=== PATIENT | male | born 1980 | race Caucasian/White ===

== ENCOUNTER 2018-07-18 12:38 | Inpatient (IN) | payer MEDICAID ==
[~2018-07-18] VITALS: Ht 162.6 cm; Wt 136.1 kg
[~2018-07-18 12:38] MED LIST: DUONEB 2.5-0.5 M3 ML INH; HYDROCODONE-APA1 TA1 PO; LEVAQUIN 500 M500 M2 PO; LEVOFLOXACIN750 MG PO; MUCINEX TA600 MG/TA2 PO; MUCINEX600 MG PO; NOHOMEMEDICATIONS; PREDNISONE 10 M10 MG PO; PREDNISONE 20 M20 MG PO; PREDNISONE50 MG PO; PROAIR HFA8.5 GM INH; SYNTHROID88 MCG PO
[2018-07-18 12:51] VITALS: BP 133/67
[2018-07-18] MEDS ORDERED: SYNTHROID175 MCG PO (12:54)
[2018-07-18 13:40] LABS: ABSOLUTE BASOPHILS 0.1 thou/uL (0.0-0.2); ABSOLUTE EOSINOPHILS 0.1 thou/uL (0.0-0.7); ABSOLUTE LYMPHOCYTES 1.3 thou/uL (0.8-5.3); ABSOLUTE MONOCYTES 0.8 thou/uL (0.0-1.2); ABSOLUTE NEUTROPHILS 3.4 thou/uL (1.6-8.1); BASOPHILS 1.1 %; EOSINOPHILS 1.9 %; HEMATOCRIT 47.1 % (42.0-52.0); HEMOGLOBIN 16.1 gm/dL (14.0-18.0); LYMPHOCYTES 23.2 %; MCH 33.6 pg (26.0-34.0); MCHC 34.1 g/dL (28.0-37.0); MCV 98.6 fL (80.0-100.0); MONOCYTES 13.8 %; MPV 7.7 fl. (7.2-11.1); NUCLEATED RBCS 0 /100WBC; PLATELET COUNT* 220 thou/uL (150-400); RBC 4.78 mil/uL (4.50-6.00); RDW-CV 13.3 % (10.5-14.5); WBC 5.6 thou/uL (4.0-11.0)
[2018-07-18 13:49] LABS: APTT 28.7 Seconds (25.0-31.3); PROTIME 10.4 Seconds (9.20-11.50)
[2018-07-18 13:59] LABS: ANION GAP 4 mmol/L (7-16); BUN 12 mg/dL (7-18); CALCIUM 8.7 mg/dL (8.5-10.1); CHLORIDE 101 mmol/L (98-107); CO2 33 mmol/L (21-32); CREATININE 1.2 mg/dL (0.6-1.3); GLUCOSE 109 mg/dL (70-99); POTASSIUM 3.8 mmol/L (3.5-5.1); SODIUM 138 mmol/L (136-145); TROPONIN-I LEVEL <0.06 ng/mL (<0.06)
[2018-07-18 14:00] LABS: ALBUMIN 3.1 g/dL (3.4-5.0); ALKALINE PHOSPHATASE 102 U/L (46-116); LIPASE 94 U/L (73-393); MAGNESIUM 2.3 mg/dL (1.8-2.4); NT-PRO BRAIN NAT PEPTIDE 72 pg/mL (<300); SGOT 16 U/L (15-37); SGPT 30 U/L (30-65); TOTAL BILIRUBIN 0.3 mg/dL (<0.1-1.0); TOTAL PROTEIN 7.1 g/dL (6.4-8.2)
[2018-07-18 14:37] LABS: INFLUENZA A ANTIGEN None Detected (None Detect); INFLUENZA B ANTIGEN None Detected (None Detect)
[2018-07-18 15:03] VITALS: BP 136/57
[2018-07-18 15:11] LABS: BE 1.1 mmol/L (-2 to +3); PO2 67.9 mmHg (75.0-100.0); pH 7.395 (7.340-7.450)
--- NOTE | 2018-07-18 16:12 | EKG ---
[place] [address] ELECTROCARDIOGRAM REPORT Name: SALLY RODRIGUEZ Room: [address] ADM [place] ..#: [id number] Admission: 07/18/18 Attend Phys: Tiffanie Russell MD Discharge: Date of : 84 Report #: [id number] THIS REPORT FOR: //name// [facility] ED Test Date: 2018-07-18 Test Time: 13:32:03 Pat Name: SALLY RODRIGUEZ Department: Room: [facility] Gender: M Senior Genetic Counselor: : 1980 Requested By: Allan Dumont Order Number: [id number] MD: Ammon Howell Measurements Intervals [place] Rate: 87 P: 44 NV: 161 QRS: 39 QRSD: 96 T: 30 QT: 358 QTc: 431 Interpretive Statements Sinus rhythm Compared to ECG 02/09/2017 08:30:43 No significant changes Electronically Signed On 07-18-2018 16:12:27 SUBSTATION OPERATOR HELPER by Ammon Howell [email or web address] <ELECTRONICALLY SIGNED> By: Ammon Howell MD, [facility] 07/18/18 1612 D: [id number] Ammon Howell MD, FACC /EPI
[2018-07-18 16:13] VITALS: BP 137/58
--- NOTE | 2018-07-18 16:17 | NUR ---
PT ADMITTED TO UNIT, PT IS ALERT TO SELF, PT ANSWERS QUESTIONS WITH YEAH. PT DOES NOT UNDERSTAND WHAT IS BEING TOLD TO HIM PART OF THE TIME. PT IS ON 3 LITERS O2 BY NASAL CANNULA. LUNGS COARSE, COUGH CONGESTED WITH NO SPUTUM. FLU NEGATIVE. BREATHING TX ORDERED. PT HAS HX OF HOME O2 6 MONTHS PRIOR BUT WERE DISCONTINUED. PT IS TACHY WITH HEART RATE OF 100. PT HAS HX OF HTN, BP 137/58. PT HAS 20 GAUGE LT IV SALINE LOCKED. ANTIBTIOC DAILY. PT MOTHER AT BEDSIDE AND ANSWERS QUESTIONS. PT REGULAR DIET. PT HAS HX OF DOWN SYNDROME. PT STEADY TO BATHROOM, UP AD KARLIE. FALL RISK PRECAUTIONS IN PLACE. WILL CONTINUE TO MONITOR.
--- NOTE | 2018-07-18 16:54 | NUR ---
PT REMAINED ALERT. PT IN ROOM RESTING WITH 3 LITERS I2 BY NASAL CANNULA. PT UP TO BATHROOM. FAMILY AT BEDSIDE. FALL RISK PRECAUTIONS IN PLACE. HOURLY ROUNDING COMPLETED. WILL CONTINUE TO MONITOR.
[2018-07-18 19:40] VITALS: BP 130/75
[2018-07-19] VITALS: BP 111/60
[2018-07-19 04:00] VITALS: BP 116/70
[2018-07-19 04:28] LABS: HEMATOCRIT 46.2 % (42.0-52.0); HEMOGLOBIN 15.7 gm/dL (14.0-18.0); MCH 33.7 pg (26.0-34.0); MCHC 34.1 g/dL (28.0-37.0); MCV 99.1 fL (80.0-100.0); MPV 7.9 fl. (7.2-11.1); NUCLEATED RBCS 0 /100WBC; PLATELET COUNT* 238 thou/uL (150-400); RBC 4.67 mil/uL (4.50-6.00); RDW-CV 13.3 % (10.5-14.5); WBC 7.6 thou/uL (4.0-11.0)
[2018-07-19 04:35] LABS: CALCIUM 8.8 mg/dL (8.5-10.1); POTASSIUM 4.3 mmol/L (3.5-5.1)
--- NOTE | 2018-07-19 05:20 | NUR ---
PT SLEPT MOST OF SHIFT. ASSESSMENT DOCUMENTED. MEDS GIVEN PER E-MAR. IV PATENT. NO REPORTS OF PAIN THIS SHIFT. BIPAP WORN WHILE SLEEPING, PT TOLERATED WELL. TELE MONITOR IN PLACE READING SR TO ST. WILL CONTINUE WITH PLAN OF CARE.
[2018-07-19 06:17] LABS: ABSOLUTE LYMPHOCYTES 0.5 thou/uL (0.8-5.3); ABSOLUTE MONOCYTES 0.1 thou/uL (0.0-1.2); ABSOLUTE NEUTROPHILS 7.1 thou/uL (1.6-8.1); ANISOCYTOSIS 1+; PLATELET ESTIMATE ADEQUATE; POIKILOCYTOSIS 1+
[2018-07-19 07:36] VITALS: BP 137/72
--- NOTE | 2018-07-19 12:05 | NUR ---
SW met with pt and pt with mother and legal Valentina shook. Pt alert, oriented. Pt continues to live at home with his mother and has father and sister support as well. Pt has history of oxygen at home through [facility] and there may be a need for home oxygen again at dc. Pt has a nebulizer at home. Pt mother wondering about possible CPAP, BiPap or Trilogy? Pt mother not sure of the name of the device but she thinks that is helpful for the pt at night although she also stated she could not convince pt to wear oxygen at night at times. SW to continue to follow to assist with safe dc planning.
--- NOTE | 2018-07-19 14:15 | NUR ---
VSS-AFEBRILE. LUNGS DIMINISHED/WHEEZY IN ALL LOBES BILATERALLY. REMAINS ON 3LNC WHICH IS ALSO WHAT PATIENT WEARS AT HOME. OOB TO SHOWER, LINEN CHANGE PERFORMED. MILD SOA WITH EXERTION. CONGESTED COUGH, SPUTUM NOT OBSERVED. GOOD APPETITE, NO REPORTED N/V. NO DIFFICULTY VOIDING.
[2018-07-19 14:20] VITALS: BP 125/65
[2018-07-19 17:48] VITALS: BP 99/37
[2018-07-20] VITALS (9 sets, daily range): BP systolic 103–141; BP diastolic 53–73
--- NOTE | 2018-07-20 07:38 | CON ---
[address] [address] CONSULTATION Name: SALLY RODRIGUEZ Room: [address] IN M.R.#: [id number] Admission: 07/18/18 Attend Phys: Tiffanie Russell MD Discharge: Date of : 84 Report #: [id number] THIS REPORT FOR: //name// CC: [place] DATE OF SERVICE: 07/19/2018 CONSULTATION REQUESTING PHYSICIAN: Tiffanie Russell M.D. INDICATION CONSULTATION: Asthma exacerbation. HISTORY OF PRESENT ILLNESS: This is a 38-year-old gentleman. He has a history of Down syndrome, asthma as well as obstructive sleep apnea. He has had significant hypercarbic respiratory failure in the past with pCO2s in the mid 50s. He previously was on Trilogy device. It appears that it was taken away from him due to noncompliance. The patient is on 2-3 liters oxygen continuous and he has been using nebulized bronchodilators p.r.n. for asthma, however, has not been on any inhaled steroids or Singulair, long-term. The patient reports having had sick contacts, discussed with both his parents as well. He has had a clear nasal discharge as well as a cough with small amounts of clear sputum for several days. He has also been having increasing shortness of breath for the last 3 days. He presented with these complaints to the Emergency Room yesterday. Overnight, he was on BiPAP. He did wear the BiPAP. He is now off BiPAP. He still complains of shortness of breath, but this is improved compared with yesterday. The patient currently is comfortable on 3 liters oxygen via nasal cannula and is saturating in the mid 90s. His chest x-ray does show increasing opacities at bilateral lung bases. The patient is able to provide only a limited history as review of systems; however, is negative except as mentioned above, I did perform a 12-point review of systems. PAST MEDICAL HISTORY: Down syndrome, bronchial asthma. I do not have previous PFTs available at this time. Note that the patient is not using any controller agent at home regularly, obstructive sleep apnea on clinical grounds. He also has had chronic hypercarbic respiratory failure with failure with pCO2 is running between 44 and 55. He previously did have a Trilogy device, which was taken away likely due to noncompliance and also history of hypertension. SOCIAL HISTORY: Lifetime nonsmoker. No known history of heavy alcohol use or illegal drug use. CURRENT MEDICATIONS: List in [employer] reviewed. HOME MEDICATIONS: List also in [employer] [place] [address] CONSULTATION Name: SALLY RODRIGUEZ Room: [address] IN [facility].#: [id number] Admission: 07/18/18 Attend Phys: Tiffanie Russell MD Discharge: Date of : 84 Report #: [id number] ALLERGIES: There are no known drug allergies. PHYSICAL EXAMINATION: GENERAL: He is alert; however, is unable to answer orientation questions. He does still appear to be short of breath at rest, has a body mass index elevated to 52. VITAL SIGNS: He has a pulse of 72 and a blood pressure of 137/72 and saturating 96% on is on 3 liters nasal cannula. His respiratory rate is mildly elevated to 20. He is afebrile with a temperature of 36.6. HEENT: Head is normocephalic and atraumatic. Pupils are equal and reactive. There is no throat erythema, narrow airway Mallampati 4. NECK: Does not show raised JVP, asymmetry, mass or lymph nodes. CHEST: Symmetrical expansion on inspection and palpation. On auscultation, there are markedly decreased breath sounds bilaterally. Breath sounds are bilaterally equal, expirations are prolonged. HEART: Regular. There is no murmur. ABDOMEN: Soft and nontender. EXTREMITIES: Lower extremities show trace edema and no calf tenderness. SKIN: Dry and intact. NEUROLOGICAL: Does move all extremities bilaterally equally and spontaneously with no focal deficit identified. RADIOLOGICAL DATA: The patient's chest x-ray shows bilateral basilar opacities, which are new compared with the chest x-ray yesterday. This is likely a combination of infiltrates as well as atelectasis. LABORATORY DATA: The patient's lab work including CBC as well as chemistries are in [facility] and these are reviewed. Arterial blood gas performed yesterday in [facility] also reviewed. ASSESSMENT AND PLAN: 1. Acute respiratory insufficiency in the background. The patient has asthma as well as sleep apnea and obesity hypoventilation syndrome. He now appears to be in any exacerbation of asthma, precipitated by a viral respiratory tract infection, likely with secondary bacterial involvement. 2. Bronchial asthma exacerbation. I agree with current therapy. He is on DuoNeb as well as Solu-Medrol suggest keeping the current dose of Solu-Medrol today, will be inclined to cut back the dose tomorrow if he is doing better. Long-term, I recommend that the patient be treated with budesonide via a nebulizer as it appears unlikely the patient will be able to use inhalers correctly. Also suggest that he be started on Singulair, long-term. Note that he already uses DuoNeb p.r.n. at home. 3. Obstructive sleep apnea/obesity hypoventilation syndrome. It appears the patient has lost his Trilogy due to noncompliance. He is able to wear the bilevel positive airway pressure. He did wear it last night. I did recommend that he continue wearing it while he is here at night. [place] [address] CONSULTATION Name: SALLY RODRIGUEZ Room: [address] IN [facility].#: [id number] Admission: 07/18/18 Attend Phys: Tiffanie Russell MD Discharge: Date of : 84 Report #: [id number] convince to use a bilevel positive airway pressure at night, then we can consider obtaining an outpatient sleep study again and then try to set him up with the one at home. Note that he is on oxygen, long-term. 4. Pulmonary infiltrates, started Levaquin. He received ceftriaxone yesterday in the Emergency Room. 5. Atelectasis. A significant amount of the opacities in the lung bases are in fact secondary to atelectasis, primarily I recommend that this be treated with encouraging ambulation. 6. Down syndrome. 7. Deep vein thrombosis prophylaxis. He is on Lovenox. 8. Clostridium difficile prophylaxis. We will order Florastor. Thanks for this consultation. <ELECTRONICALLY SIGNED> By: Michael Garcia MD 07/20/18 0738 [id number] america Greco
[2018-07-21] VITALS: BP 123/36
[2018-07-21 04:00] VITALS: BP 100/47
--- NOTE | 2018-07-21 06:01 | NUR ---
PT SLEPT MOST OF SHIFT. ASSESSMENT DOCUMENTED. MEDS GIVEN PER E-MAR. IV PATNET. NO REPORTS OF PAIN THIS SHIFT. PT WORE BIPAP WHILE SLEEPING. NC WORN WHILE AWAKE. FATHER AT BEDSIDE PART OF SHIFT. WILL CONTINUE WITH PLAN OF CARE.
[2018-07-21 08:00] VITALS: BP 131/57
[2018-07-21 09:13] LABS: CALCIUM 8.2 mg/dL (8.5-10.1); CREATININE 1.1 mg/dL (0.6-1.3); MAGNESIUM 2.7 mg/dL (1.8-2.4); POTASSIUM 3.9 mmol/L (3.5-5.1)
--- NOTE | 2018-07-21 09:45 | NUR ---
Nutrition: Pt admitted with SOA. H/o asthma, down's syndrome. Gradual wt gain over 4 yrs, from 180# to 300#. RD saw pt last in 2017, he weighed 260#. Current wt 300#. Regular diet, eating 100%. Albumin 3.1. Pt and mother are poor historians. Low risk.
[2018-07-21 12:37] VITALS: BP 118/56
--- NOTE | 2018-07-21 16:00 | NUR ---
SW to continuing to follow through dc. At this point, pt qualifies for home oxygen; SW to order home oxygen at 2L for dc if this remains a need at dc. Pt will need an outpatient sleep study to qualify for CPAP.
--- NOTE | 2018-07-21 16:06 | NUR ---
SHIFT NOTE - PT SEEN BY PT/OT/RT TODAY. FAMILY PRESENT AT BEDSIDE. USING BIPAP AT HS/NAPS. TOLERATING WELL. WILL CONTINUE TO MONITOR.
[2018-07-21 16:17] VITALS: BP 111/71
[2018-07-21 20:25] VITALS: BP 133/69
[2018-07-22 00:29] VITALS: BP 100/47
[2018-07-22 03:31] VITALS: BP 105/52
--- NOTE | 2018-07-22 05:21 | NUR ---
PT SLEPT MOST OF SHIFT. ASSESSMENT DOCUMENTED. MEDS GIVEN PER E-JUL. NEW IV STARTED THIS SHIFT. BIPAP WORN WHILE SLEEPING. WILL CONTINUE WITH PLAN OF CARE.
[2018-07-22 08:15] VITALS: BP 121/63
[2018-07-22 12:00] VITALS: BP 130/69
[2018-07-22 16:00] VITALS: BP 126/70
--- NOTE | 2018-07-22 16:55 | NUR ---
MARÍA followed up with pt dc planning; possible for pt to dc home with mother tomorrow, Sunday 07/23. SW attempted to contact pt mother, left a detailed message regarding pt dc needs. MARÍA discussed with Dr Russell that pt would need an outpatient sleep study to be able to qualify for CPAP, Dr Russell agreed for pt to be able to dc with oxygen and then follow up for CPAP. MARÍA provided referral and orders and testing for pt 2 L home oxygen to [facility] with [facility] to deliver to pt room tomorrow morning by 9 or 10 am.
[2018-07-22 20:00] VITALS: BP 128/77
--- NOTE | 2018-07-22 20:00 | NUR ---
PATIENT HAS BEEN A/O X 4 THIS SHIFT. HAS DENIED PAIN OR SHORTNESS OF AIR. PATIENT ON O2 AT 2L/NC. PATIENT CONTINUES ON TELEPHONE SALES REPRESENTATIVE, TRACING NSR. PATIENT UP AD KARLIE IN ROOM. SALINE LOCK PATENT CONTINUES ON STEROIDS. PATIENT HOPEFUL TO BE DISCHARGED THIS WEEKEND. FAMILY AT BEDSIDE THOUGHOUT THE SHIFT. CALL LIGHT WITHIN REACH. WILL CONTINUE WITH PLAN OF CARE.
[2018-07-23] VITALS: BP 130/60
[2018-07-23 04:00] VITALS: BP 136/73
--- NOTE | 2018-07-23 05:36 | NUR ---
PATIENT SLEPT WELL DURING THIS SHIFT. PT UP TO BATHROOM WITH STEADY GAIT. PT ON O2 @ 2LITERS PER NASAL CANNULA AND BIPAP AT NIGHT. PT DENIES PAIN/NAUSEA ON THIS SHIFT. PT SR ON HAM DOCTOR. PT WITH HARSH, NON-PRODUCTIVE COUGH. PT WITH SALINE LOCK IN RT FOREARM. FREQUENTLY USED ITEMS AND CALL LIGHT WITHIN REACH. SIDERAILS UPX2. WILL CONTINUE TO MONITOR.
[2018-07-23 09:08] VITALS: BP 119/58
--- NOTE | 2018-07-23 10:00 | NUR ---
PT ALERT TO PERSON. CALM. COOPERATIVE. PLEASANT. MEDICATIONS ADMINISTERED PER MAR. VSS.
--- NOTE | 2018-07-23 10:33 | NUR ---
Following for d/c planning needs. [facility] delivered 02 to pt this morning and gave contact information to family so they can call when they are discharging to arrange delivery of concentrator.
[2018-07-23] MEDS ORDERED: SYNTHROID150 MCG PO (12:09)
[2018-07-23] MEDS ORDERED: SINGULAIR 10 MG10 M1 PO (12:09)
[2018-07-23] MEDS ORDERED: PREDNISONE 10 M10 MG PO (12:10)
[2018-07-23 13:04] VITALS: BP 119/58
--- NOTE | 2018-07-23 14:37 | NUR ---
FATHER NADER RODRIGUEZ PRESENT FOR DISCHARGE INSTRUCTIONS. PT DISCHARGED ON 2L NC. HOME OXYGEN TANK HERE. [facility] CALLED INTO [facility].
== END 2018-07-23 13:55 | disposition home or self-care (01) | DRG 193 ==
LOC: M.ERS 12:38 → M.TBA-ER 14:13 → M.3W 14:13
PROVIDERS: Family Medicine; ADMIT Family Medicine
PROC: 5A09357 Assistance with Respiratory Ventilation, Less than 24 Consecutive Hours, Continuous Positive Airway Pressure (ICD-10-PCS; principal; 2018-07-19)
PROC: 5A09357 Assistance with Respiratory Ventilation, Less than 24 Consecutive Hours, Continuous Positive Airway Pressure (ICD-10-PCS; 2018-07-20)
PROC: 5A09357 Assistance with Respiratory Ventilation, Less than 24 Consecutive Hours, Continuous Positive Airway Pressure (ICD-10-PCS; 2018-07-21)
DX: J18.9 Pneumonia, unspecified organism (principal); J96.01 Acute respiratory failure with hypoxia; E66.2 Morbid (severe) obesity with alveolar hypoventilation; Z68.43 Body mass index [BMI] 50.0-59.9, adult; J45.901 Unspecified asthma with (acute) exacerbation; J98.11 Atelectasis; I12.9 Hypertensive chronic kidney disease with stage 1 through stage 4 chronic kidney disease, or unspecified chronic kidney disease; N18.2 Chronic kidney disease, stage 2 (mild); E03.9 Hypothyroidism, unspecified; G47.33 Obstructive sleep apnea (adult) (pediatric); Q90.9 Down syndrome, unspecified; Z79.899 Other long term (current) drug therapy; Z80.8 Family history of malignant neoplasm of other organs or systems